=== PATIENT | male | born 2000 | race African-American/Black ===

== ENCOUNTER 2018-12-30 13:56 | Emergency (ER) | payer MEDICAID ==
[~2018-12-30] VITALS: Ht 172.7 cm; Wt 119.7 kg
[2018-12-30 14:02] VITALS: BP 144/99
[2018-12-30] MEDS ORDERED: ALBUTEROL SULFATE/IPRATROPIU 3 ML SOL IH ONE (15:00)
[2018-12-30] MEDS ORDERED: predniSONE 20 MG TAB PO ONE (15:00)
== END 2018-12-30 15:59 | disposition left against medical advice (07) ==
LOC: MED 13:56
DX: J45.901 Unspecified asthma with (acute) exacerbation (principal)
CPT/HCPCS: 71046; 94640; 99284; J7512; J7620

== ENCOUNTER 2018-12-31 11:40 | Emergency (ER) | payer MEDICAID ==
[~2018-12-31] VITALS: Ht 175.3 cm; Wt 119.7 kg
[2018-12-31 11:49] VITALS: BP 164/97
--- NOTE | 2018-12-31 11:56 | NUR ---
Patient ambulated to bed 7 with family. RN evaluating patient at bedside.
--- NOTE | 2018-12-31 12:16 | NUR ---
PATIENT PRESENTS TO ED WITH C/O NON-PROD COUGH X 4 DAYS. PT WITH EPISODE OF BLOODY SPUTUM AND 4X VOMITING THIS MORNING. PT ALSO COMPLAINS OF H/A, , CP, COLDS AND FEVER. PT DESCRIBES CP FEELING HEAVY, WITH PAIN SCALE 9/10. DENIES DIARRHEA AND URINARY SYMPTOMS. PATIENT TOOK PROMETHAZINE AND IBUPROFEN WHICH PROVIDED NO RELIEF. PATIENT POSITIONED FOR COMFORT; HOB ELEVATED; BEDRAILS UP X2; BED DOWN. ER MD MADE AWARE OF PT STATUS. PMH: ASTHMA, BRONCHITIS MEDS: ALBUTEROL, IBUPROFEN ALLERGIES: SHELLFISH
[2018-12-31] MEDS ORDERED: LORazepam 1 MG TAB PO ONE (12:45)
[2018-12-31] MEDS ORDERED: DEXAMETHASONE 10 MG/ML VIAL IM ONE (12:45)
[2018-12-31] MEDS ORDERED: hydrOXYzine HCL 25 MG TAB PO ONE (12:45)
[2018-12-31] MEDS ORDERED: ALBUTEROL SULFATE/IPRATROPIU 3 ML SOL IH ONE (12:45)
[2018-12-31] MEDS ORDERED: CLINDAMYCIN 600 MG/4 ML VIAL IM ONE (12:45)
--- NOTE | 2018-12-31 12:48 | NUR ---
Breathing treatment administered by respiratory therapist at bedside.
--- NOTE | 2018-12-31 13:03 | NUR ---
Dr. Romano is re-evaluating the patient at bedside.
[2018-12-31 14:00] VITALS: BP 135/77
--- NOTE | 2018-12-31 14:01 | NUR ---
Patient discharged with v/s stable. Written and verbal after care instructions given and explained. Patient alert, oriented and verbalized understanding of instructions. Wheel Chair Assisted with to home. All questions addressed prior to discharge. ID band removed. Patient advised to follow up with PMD. Rx of VISTARIL, PREDNISONE, DOXYCYCLINE given. Patient educated on indication of medication including possible reaction and side effects. Opportunity to ask questions provided and answered.
== END 2018-12-31 14:01 | disposition home or self-care (01) ==
LOC: MED 11:40
DX: J45.909 Unspecified asthma, uncomplicated (principal); F12.90 Cannabis use, unspecified, uncomplicated
CPT/HCPCS: 36600; 82803; 94640; 96372; 99283; J1100; J3490; J7620

== ENCOUNTER 2019-04-11 13:51 | Emergency (ER) | payer MEDICAID, OTHER ==
[~2019-04-11] VITALS: Ht 175.3 cm; Wt 74.4 kg
[2019-04-11 13:55] VITALS: BP 121/79
--- NOTE | 2019-04-11 14:00 | NUR ---
PT TO ER BED 12
--- NOTE | 2019-04-11 14:15 | NUR ---
C/O ANAL PAIN X ABOUT A MONTH AGO. PT STATES NO DIFFICULTY WITH BOWEL MOVEMENT, JUST DESCRIBES ANAL TO BE PAINFUL. FAMILY AT BEDISDE, BED IN LOW POSITION, SIDE RAIL UP X 1. WILL CONTINUE TO MONITOR.
[2019-04-11 14:33] VITALS: BP 121/79
--- NOTE | 2019-04-11 14:33 | NUR ---
Patient discharged with v/s stable. Written and verbal after care instructions given and explained. Patient verbalized understanding. Ambulatory with steady gait. All questions addressed prior to discharge. Advised to follow up with PMD. RX OF DOCUSATE & NIFEDIPINE WITH LIDOCAINE GEL
== END 2019-04-11 14:33 | disposition home or self-care (01) ==
LOC: MED 13:51
DX: K60.2 Anal fissure, unspecified (principal); J45.909 Unspecified asthma, uncomplicated
CPT/HCPCS: 99283

== ENCOUNTER 2019-04-16 12:21 | Emergency (ER) | payer MEDICAID ==
[~2019-04-16] VITALS: Ht 177.8 cm; Wt 119.7 kg
[2019-04-16 12:30] VITALS: BP 130/95
--- NOTE | 2019-04-16 14:20 | NUR ---
PT AMBULATED TO BED 9.
--- NOTE | 2019-04-16 15:30 | NUR ---
19 Y/O MALE PRESENTS TO ER WITH ANAL FISSURE PAIN X 1 MONTH. PT WAS SEEN IN THE ER LAST WEEK FOR ANAL FISSURE PAIN. C/O PAINFUL BOWEL MOVEMENTS, WITH NO VISIBLE BLOOD. WILL CONTINUE TO MONITOR. SIDERAIL X1 PMH: JOHN SAMANO
--- NOTE | 2019-04-16 15:38 | NUR ---
PATIENT ELOPED FROM FACILITY. DISCHARGE INSTRUCTIONS NOT GIVEN TO PATIENT. JOSE D LOPEZ NOTIFIED.
== END 2019-04-16 15:38 | disposition left against medical advice (07) ==
LOC: MED 12:21
DX: K60.2 Anal fissure, unspecified (principal); K64.4 Residual hemorrhoidal skin tags; J45.909 Unspecified asthma, uncomplicated
CPT/HCPCS: 99281

== ENCOUNTER 2019-04-17 13:00 | Emergency (ER) | payer MEDICAID ==
[~2019-04-17] VITALS: Ht 177.8 cm; Wt 117.6 kg
[2019-04-17 13:04] VITALS: BP 150/103
--- NOTE | 2019-04-17 13:26 | NUR ---
RECTAL PAIN X 1 MONTH PT WITH ANAL FISSURE NO BLEEDING NOTED.PT AWAKE, ALERT, AFIBRILE ,AMBULATORY WITH STEADY GAIT .ABDOMEN IS SOFT NABS . PMH: ASTHMA MEDS: ALBUTEROL NKA
[2019-04-17 15:48] VITALS: BP 144/78
--- NOTE | 2019-04-17 15:49 | NUR ---
Patient discharged with v/s stable. Written and verbal after care instructions given and explained. Patient alert, oriented and verbalized understanding of instructions. Ambulatory with steady gait. All questions addressed prior to discharge. ID band removed. Patient advised to follow up with PMD. Rx of ANUSOL, MAGNESIUM CITRATE given. Patient educated on indication of medication including possible reaction and side effects. Opportunity to ask questions provided and answered.
== END 2019-04-17 15:10 | disposition home or self-care (01) ==
LOC: MED 13:00
DX: K59.00 Constipation, unspecified (principal); K60.2 Anal fissure, unspecified; J45.909 Unspecified asthma, uncomplicated; Z91.048 Other nonmedicinal substance allergy status
CPT/HCPCS: 99282